=== PATIENT | female | born 1990 | race Caucasian/White ===

== ENCOUNTER 2016-10-25 08:52 | Emergency (ER) | payer OTHER ==
[~2016-10-25] VITALS: Ht 175.3 cm; Wt 56.2 kg
[~2016-10-25 08:52] MED LIST: BACTRIM,SEPT1 TABLET PO; IMITREX100 MG PO; KEFLEX500 MG PO; PROPRANOLOL HCL20 MG PO
[2016-10-25 11:35] VITALS: BP 127/93
== END 2016-10-25 11:36 | disposition home or self-care (01) ==
LOC: EME 08:52
DX: G43.909 Migraine, unspecified, not intractable, without status migrainosus (principal)
CPT/HCPCS: 99281; 99283; J1100; J1200; J1885; J2765